=== PATIENT | female | born 1955 | race African-American/Black ===

== ENCOUNTER 2018-03-05 14:36 | Emergency (ER) | payer OTHER ==
[~2018-03-05] VITALS: Ht 157.5 cm; Wt 47.6 kg
[2018-03-05] MEDS ORDERED: IV NORMAL SALINE 1,000ML 1,000 ML IV SCH (15:11)
--- NOTE | 2018-03-05 15:15 | PHYS DOC ---
Adult General Chief Complaint Chief Complaint: nausea and vomiting and diarrhea [facility] HPI Patient is a 62-year-old female who presented with complaining of nausea and vomiting and diarrhea. Patient complaining of 4 episodes of nonbloody vomiting and 4 episodes of diarrhea since this morning with lower abdominal cramping pain during episodes of vomiting and diarrhea and rated her pain as a moderate pain. Patient also complaining of headache. Patient denies fever and chills, chest pain, shortness of breath, sick contact, urinary symptom, focal neuro deficit. Review of Systems Review of Systems Constitutional: Denies fever or chills [] Eyes: Denies change in visual acuity, redness, or eye pain [] HENT: Denies nasal congestion or sore throat [] Respiratory: Denies cough or shortness of breath [] Cardiovascular: No additional information not addressed in HPI [] GI: Reports abdominal pain, nausea, vomiting, diarrhea [] : Denies dysuria or hematuria [] Musculoskeletal: Denies back pain or joint pain [] Integument: Denies rash or skin lesions [] Neurologic: Denies headache, focal weakness or sensory changes [] Endocrine: Denies polyuria or polydipsia [] All other systems were reviewed and found to be within normal limits, except as documented in this note. Current Medications Current Medications Current Medications Medications (Trade) Dose Ordered Sig/[facility] Start Time Stop Time Status Last Admin Dose Admin Ondansetron HCl (Zofran) 4 mg 1X ONCE 03/05/18 15:15 03/05/18 15:16 UNV Sodium Chloride 1,000 ml @ 1,000 mls/hr Q1H 03/05/18 15:11 03/05/18 16:10 UNV Allergies Allergies Allergies Coded Allergies Type Severity Reaction Last Updated Verified acetaminophen Allergy Unknown 03/05/18 Yes amoxicillin Allergy Unknown 03/05/18 Yes clavulanic acid Allergy Unknown 03/05/18 Yes oxycodone Allergy Unknown 03/05/18 Yes Physical Exam Physical Exam Constitutional: Well developed, well nourished, mild distress, non-toxic appearance. [] HENT: Normocephalic, atraumatic, bilateral external ears normal, oropharynx moist, no oral exudates, nose normal. [] Eyes: PERRLA, EOMI, conjunctiva normal, no discharge. [] Neck: Normal range of motion, no tenderness, supple, no stridor. [] Cardiovascular:Heart rate regular rhythm, no murmur [] Lungs & Thorax: Bilateral breath sounds clear to auscultation [] Abdomen: Bowel sounds normal, soft, no tenderness, no masses, no pulsatile masses. [] Skin: Warm, dry, no erythema, no rash. [] Back: No tenderness, no CVA tenderness. [] Extremities: No tenderness, no cyanosis, no clubbing, ROM intact, no edema. [] Neurologic: Alert and oriented X 3, normal motor function, normal sensory function, no focal deficits noted. [] Psychologic: Affect anxious, judgement normal, mood normal. [] EKG EKG [] Radiology/Procedures Radiology/Procedures [][place] [address] IMAGING REPORT Signed PATIENT: LUPE SILVA ACCOUNT: [id number] : 1955 LOCATION: ER AGE: 62 SEX: F EXAM STATUS: REG ER ORD. PHYSICIAN: BRENDA ROMERO MD REASON: abdominal pain PROCEDURE: CT ABDOMEN PELVIS WO CONTRAST CT of the abdomen and pelvis without contrast, 03/05/2018: HISTORY: Abdominal pain Multidetector CT imaging was performed without oral or IV contrast. This limits evaluation of the abdominal structures, particularly in a patient such as this with a paucity of intra-abdominal fat. No hepatic abnormality is seen. The gallbladder is unremarkable. The pancreas cannot be clearly from unopacified bowel. The spleen is within normal limits in size. The unopacified kidneys show no abnormality. Moderate aortic calcific plaquing is present. No abdominal or pelvic adenopathy is seen. A small amount of radiopaque material within the colon may represent medication. The bowel loops are not dilated. No free air or definite free fluid is seen in the abdomen or pelvis. IMPRESSION: Limited exam demonstrating no acute abnormality. Electronically signed by: Chet Gill MD (03/05/2018 3:53 PM) [facility] DICTATED AND SIGNED BY: CHET GILL MD DATE: 03/05/18 1547 CC: BRENDA ROMERO MD; DARCY CONCEPCION DO, [facility] ~ Course & Med Decision Making Course & Med Decision Making Pertinent Labs and Imaging studies reviewed. (See chart for details) Evolution of patient in ER showed 62-year-old female patient with episodes of nausea and vomiting and diarrhea since this morning. Patient didn't want to have pain medication in ER and treated with IV fluid and Zofran and felt better. Patient tolerated oral intake. Labs and CT abdomen and pelvis was unremarkable. Plan discharge patient home to diagnose of acute gastroenteritis. [] Dragon Disclaimer Dragon Disclaimer This electronic medical record was generated, in whole or in part, using a voice recognition dictation system. Departure Departure: Impression: Primary Impression: Acute gastroenteritis Additional Impression: Abdominal pain Disposition: HOME, SELF-CARE (at 17 oh) Condition: IMPROVED Referrals: DARCY CONCEPCION DO [facility] (PCP) Patient Instructions: Viral Gastroenteritis Additional Instructions: discharge: I've spoken with the patient and/or caregivers. I've explained the patient's condition, diagnosis and treatment plan based on information available to me at this time. I've answered the patient's and/or caregivers questions and addressed any concerns. The patient and/or caregivers have a good understanding the patient's diagnosis, condition and treatment plan as can be expected at this point. Vital signs have been stabilized. The patient's condition is stable for discharge from the emergency department. The patient will pursue further outpatient evaluation with her primary care provider or other designated consulting physician as outlined in the discharge instructions. Patient and/or caregivers are agreeable to this plan of care and follow-up instructions have been explained in detail. The patient and/or caregivers have received these instructions in written format and expressed understanding of these discharge instructions. The patient and her caregivers are aware that if any significant change in condition or worsening of symptoms should prompt him to immediately return to this of the closest emergency department. If an emergent department is not readily available I would encourage him to call 911. Scripts Tramadol Hcl (ULTRAM) 50 Mg Tablet 50 MG PO PRN Q6HRS PRN for PAIN, #10 TAB Prov: BRENDA ROMERO MD 03/05/18 Ondansetron (ZOFRAN ODT) 4 Mg Tab.rapdis 1 TAB SL Q8HRS, #15 TAB Prov: BRENDA ROMERO MD 03/05/18 Problem Qualifiers BRENDA ROMERO MD Mar 05, 2018 15:15
[2018-03-05] MEDS ORDERED: ONDANSETRON PF 4 MG/2 ML VIAL. IV ONE (15:30)
[2018-03-05 15:36] LABS: BASO % 1 % (0-3); EOS % 1 % (0-3); HEMATOCRIT 38.7 % (36.0-47.0); HEMOGLOBIN 13.3 g/dL (12.0-15.5); LYMPH # 0.6 x10^3/uL (1.0-4.8); LYMPH % 11 % (24-48); MEAN CORPUSCULAR HEMOGLOBIN 33 pg (25-35); MEAN CORPUSCULAR HGB CONC 35 g/dL (31-37); MEAN CORPUSCULAR VOLUME 95 fL (79-100); MONO # 0.4 x10^3/uL (0.0-1.1); MONO % 7 % (0-9); NEUT # 4.3 x10^3uL (1.8-7.7); NEUT % 81 % (31-73); PLATELET COUNT 207 x10^3/uL (140-400); RED BLOOD COUNT 4.07 x10^6/uL (3.50-5.40); RED CELL DISTRIBUTION WIDTH 13.6 % (11.5-14.5); WHITE BLOOD COUNT 5.3 x10^3/uL (4.0-11.0)
[2018-03-05 15:49] LABS: ALBUMIN 3.7 g/dL (3.4-5.0); ALBUMIN/GLOBULIN RATIO 1.1 (1.0-1.7); CALCIUM 9.5 mg/dL (8.5-10.1); CREATININE 0.8 mg/dL (0.6-1.0); GFR 87.7; POTASSIUM 3.7 mmol/L (3.5-5.1); TOTAL BILIRUBIN 0.5 mg/dL (0.2-1.0); TOTAL PROTEIN 7.1 g/dL (6.4-8.2)
--- NOTE | 2018-03-05 15:55 | RAD ---
CT of the abdomen and pelvis without contrast, 03/05/2018: HISTORY: Abdominal pain Multidetector CT imaging was performed without oral or IV contrast. This limits evaluation of the abdominal structures, particularly in a patient such as this with a paucity of intra-abdominal fat. No hepatic abnormality is seen. The gallbladder is unremarkable. The pancreas cannot be clearly from unopacified bowel. The spleen is within normal limits in size. The unopacified kidneys show no abnormality. Moderate aortic calcific plaquing is present. No abdominal or pelvic adenopathy is seen. A small amount of radiopaque material within the colon may represent medication. The bowel loops are not dilated. No free air or definite free fluid is seen in the abdomen or pelvis. IMPRESSION: Limited exam demonstrating no acute abnormality. Electronically signed by: Chet Gill MD (03/05/2018 3:53 PM) [facility]
[2018-03-05 16:09] LABS: BACTERIA,URINE 0 /HPF (0-FEW); BILIRUBIN,URINE NEG (NEG); CLARITY,URINE CLEAR; COLOR,URINE YELLOW; GLUCOSE,URINE NEG (NEG); NITRITE,URINE NEG (NEG); SQUAMOUS EPITHELIAL CELL,UR OCC /LPF; UROBILINOGEN,URINE 0.2 mg/dL (0.2 mg/dL)
[2018-03-05] MEDS ORDERED: TRAM-48 PO (17:13)
[2018-03-05] MEDS ORDERED: ONDA4TAB10 SL (17:13)
[2018-03-05 17:46] VITALS: BP 164/86
== END 2018-03-05 17:47 | disposition home or self-care (01) ==
LOC: ER 14:36
DX: K52.9 Noninfective gastroenteritis and colitis, unspecified (principal); Z88.6 Allergy status to analgesic agent; Z88.1 Allergy status to other antibiotic agents; Z88.5 Allergy status to narcotic agent
CPT/HCPCS: 36415; 74176; 80053; 81001; 83690; 85025; 96361; 96374; 99285; J2405; J7030

== ENCOUNTER 2018-04-22 10:57 | Emergency (ER) | payer OTHER ==
[~2018-04-22] VITALS: Ht 144.8 cm; Wt 49.9 kg
[~2018-04-22 10:57] MED LIST: ONDA4TAB10 SL; TRAM-48 PO
[2018-04-22] MEDS ORDERED: IV NORMAL SALINE 1,000ML 1,000 ML IV ONE (11:45)
[2018-04-22 11:55] LABS: BASO # 0.1 x10^3/uL (0.0-0.2); BASO % 1 % (0-3); EOS # 0.3 x10^3/uL (0.0-0.7); EOS % 6 % (0-3); HEMATOCRIT 46.3 % (36.0-47.0); HEMOGLOBIN 15.9 g/dL (12.0-15.5); LYMPH # 1.3 x10^3/uL (1.0-4.8); LYMPH % 32 % (24-48); MEAN CORPUSCULAR HEMOGLOBIN 33 pg (25-35); MEAN CORPUSCULAR HGB CONC 34 g/dL (31-37); MEAN CORPUSCULAR VOLUME 96 fL (79-100); MONO # 0.4 x10^3/uL (0.0-1.1); MONO % 10 % (0-9); NEUT % 51 % (31-73); PLATELET COUNT 228 x10^3/uL (140-400); RED BLOOD COUNT 4.81 x10^6/uL (3.50-5.40); WHITE BLOOD COUNT 3.9 x10^3/uL (4.0-11.0)
[2018-04-22 12:08] LABS: ALBUMIN 4.8 g/dL (3.4-5.0); ALBUMIN/GLOBULIN RATIO 1.3 (1.0-1.7); CALCIUM 10.2 mg/dL (8.5-10.1); CREATININE 0.9 mg/dL (0.6-1.0); GFR 76.5; POTASSIUM 3.3 mmol/L (3.5-5.1); TOTAL BILIRUBIN 0.7 mg/dL (0.2-1.0); TOTAL PROTEIN 8.6 g/dL (6.4-8.2)
[2018-04-22] MEDS ORDERED: METH4TAB2 PO (12:37)
[2018-04-22] MEDS ORDERED: BETA15CR5 TP (12:37)
[2018-04-22] MEDS ORDERED: HYDR25TA PO (12:37)
--- NOTE | 2018-04-22 12:37 | PHYS DOC ---
Past History Past Medical History: Hypertension Past Surgical History: Hysterectomy, Other Alcohol Use: None Drug Use: None Adult General Chief Complaint Chief Complaint: skin lesion HPI HPI Patient is a 62 year old female who presents with complaining of skin lesions. Patient states about 2 months ago she was [place] park and had insect bites and developed an allergic reaction with generalized rash and treated with straight medication with improvement of the rash but developed some lesion in lower and upper extremity with itching and change of color of the skin and drainage of clear liquid and treated by her primary care physician with Bactroban and clindamycin without improvement of condition. Patient complaining of increasing condition under her arm and axillary area without improving the lesion of her leg with taking antibiotic. Patient denies fever and chills, history of diabetes of the same lesion, sick contact. Review of Systems Review of Systems Constitutional: Denies fever or chills [] Eyes: Denies change in visual acuity, redness, or eye pain [] HENT: Denies nasal congestion or sore throat [] Respiratory: Denies cough or shortness of breath [] Cardiovascular: No additional information not addressed in HPI [] GI: Denies abdominal pain, nausea, vomiting, bloody stools or diarrhea [] : Denies dysuria or hematuria [] Musculoskeletal: Denies back pain or joint pain [] Integument: Reports rash and skin lesions [] Neurologic: Denies headache, focal weakness or sensory changes [] Endocrine: Denies polyuria or polydipsia [] All other systems were reviewed and found to be within normal limits, except as documented in this note. Current Medications Current Medications Current Medications Medications (Trade) Dose Ordered Sig/[facility] Start Time Stop Time Status Last Admin Dose Admin Sodium Chloride 1,000 ml @ 1,000 mls/hr 1X ONCE 04/22/18 11:45 04/22/18 11:46 DC Allergies Allergies Allergies Coded Allergies Type Severity Reaction Last Updated Verified acetaminophen Allergy Unknown 03/05/18 Yes amoxicillin Allergy Unknown 03/05/18 Yes clavulanic acid Allergy Unknown 03/05/18 Yes oxycodone Allergy Unknown 03/05/18 Yes Physical Exam Physical Exam Constitutional: Well developed, well nourished, mild distress, non-toxic appearance. [] HENT: Normocephalic, atraumatic. [] Eyes: PERRLA, EOMI, conjunctiva normal, no discharge. [] Neck: Normal range of motion, no tenderness, supple, no stridor. [] Cardiovascular:Heart rate regular rhythm, no murmur [] Lungs & Thorax: Bilateral breath sounds clear to auscultation [] Abdomen: Bowel sounds normal, soft, no tenderness, no masses, no pulsatile masses. [] Skin: Warm, dry, bilateral lower extremity erythema and exfoliative rash without sign of abscess or drainage of pus, bilateral upper extremity weakness eczematic rash without sign of infection Extremities: No tenderness, no cyanosis, no clubbing, ROM intact, no edema. [] Neurologic: Alert and oriented X 3, normal motor function, normal sensory function, no focal deficits noted. [] Psychologic: Affect normal, judgement normal, mood normal. [] Current Patient Data Lab Results Laboratory Tests Test 04/22/18 11:44 White Blood Count 3.9 x10^3/uL (4.0-11.0) L Red Blood Count 4.81 x10^6/uL (3.50-5.40) Hemoglobin 15.9 g/dL (12.0-15.5) H Hematocrit 46.3 % (36.0-47.0) Mean Corpuscular Volume 96 fL (79-100) Mean Corpuscular Hemoglobin 33 pg (25-35) Mean Corpuscular Hemoglobin Concent 34 g/dL (31-37) Red Cell Distribution Width 14.0 % (11.5-14.5) Platelet Count 228 x10^3/uL (140-400) Neutrophils (%) (Auto) 51 % (31-73) Lymphocytes (%) (Auto) 32 % (24-48) Monocytes (%) (Auto) 10 % (0-9) H Eosinophils (%) (Auto) 6 % (0-3) H Basophils (%) (Auto) 1 % (0-3) Neutrophils # (Auto) 2.0 x10^3uL (1.8-7.7) Lymphocytes # (Auto) 1.3 x10^3/uL (1.0-4.8) Monocytes # (Auto) 0.4 x10^3/uL (0.0-1.1) Eosinophils # (Auto) 0.3 x10^3/uL (0.0-0.7) Basophils # (Auto) 0.1 x10^3/uL (0.0-0.2) Sodium Level 142 mmol/L (136-145) Potassium Level 3.3 mmol/L (3.5-5.1) L Chloride Level 100 mmol/L (98-107) Carbon Dioxide Level 33 mmol/L (21-32) H Anion Gap 9 (6-14) Blood Urea Nitrogen 16 mg/dL (7-20) Creatinine 0.9 mg/dL (0.6-1.0) Estimated GFR (Cockcroft-Gault) 76.5 BUN/Creatinine Ratio 18 (6-20) Glucose Level 94 mg/dL (70-99) Calcium Level 10.2 mg/dL (8.5-10.1) H Total Bilirubin 0.7 mg/dL (0.2-1.0) Aspartate Amino Transferase (AST) 29 U/L (15-37) Alanine Aminotransferase (ALT) 29 U/L (14-59) Alkaline Phosphatase 70 U/L (46-116) Total Protein 8.6 g/dL (6.4-8.2) H Albumin 4.8 g/dL (3.4-5.0) Albumin/Globulin Ratio 1.3 (1.0-1.7) EKG EKG [] Radiology/Procedures Radiology/Procedures [] Course & Med Decision Making Course & Med Decision Making Pertinent Labs reviewed. (See chart for details) Evaluation of patient in ER showed 62-year-old female patient with a chronic rash in bilateral lower extremity that did not get better with clindamycin and Bactroban. Patient did not have sign of infection and had a rash like autoimmune or hypersensitivity rash. Prescription for hydroxyzine and betamethasone ointment and Medrol Dosepak was given and patient instructed to follow-up with her primary care physician for referral to metal molder for possible biopsy and treatment. Dragon Disclaimer Dragon Disclaimer This electronic medical record was generated, in whole or in part, using a voice recognition dictation system. Departure Departure: Impression: Primary Impression: Skin ulcer of lower extremity Additional Impressions: Leukopenia Hypokalemia Disposition: HOME, SELF-CARE (at 1231) Condition: STABLE Referrals: DARCY CONCEPCION DO, [facility] (PCP) Patient Instructions: Hypokalemia, Skin Ulcer Additional Instructions: Follow-up with your primary care physician in 2 days for metal molder referral Return to ER if not getting better Scripts Hydroxyzine Hcl (HYDROXYZINE HCL) 25 Mg Tablet 1 TAB PO TID PRN for ITCHING, #30 TAB Prov: BRENDA ROMERO MD 04/22/18 Betamethasone Dipropionate (BETAMETHASONE DIPROPIONATE) 15 Gm Cream..g. 1 MAZIN TP BID, #45 GM 1 Refill Prov: BRENDA ROMERO MD 04/22/18 Methylprednisolone (MEDROL) 4 Mg Tab.ds.pk 1 PKG PO UD, #1 PKG Prov: BRENDA ROMERO MD 04/22/18 Problem Qualifiers BRENDA ROMERO MD Apr 22, 2018 12:37
[2018-04-22 12:52] VITALS: BP 148/81
== END 2018-04-22 12:50 | disposition home or self-care (01) ==
LOC: ER 10:57
DX: L97.929 Non-pressure chronic ulcer of unspecified part of left lower leg with unspecified severity (principal); L97.919 Non-pressure chronic ulcer of unspecified part of right lower leg with unspecified severity; D72.819 Decreased white blood cell count, unspecified; E87.6 Hypokalemia; I10 Essential (primary) hypertension; Z88.5 Allergy status to narcotic agent; Z88.6 Allergy status to analgesic agent; Z88.1 Allergy status to other antibiotic agents
CPT/HCPCS: 36415; 80053; 85025; 99284